=== PATIENT | male | born 2000 | race Hispanic/Latino ===

== ENCOUNTER 2024-10-10 08:55 | Emergency (ER) | payer OTHER ==
[~2024-10-10] VITALS: Ht 167.6 cm; Wt 90.7 kg
[2024-10-10 09:01] VITALS: BP 137/77; PULSE 117; RESP 16; TEMP 98; O2SAT 95
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
== END 2024-10-10 09:20 | disposition home or self-care (01) ==
LOC: EDBD 08:55 → EEVIPCON 08:55 → EDH 08:55
DX: Z02.89 Encounter for other administrative examinations (principal)
CPT/HCPCS: 99283